=== PATIENT | female | born 2000 | race Two or more races ===

== ENCOUNTER 2024-02-17 09:16 | Emergency (ER) | payer OTHER ==
[~2024-02-17] VITALS: Ht 165.1 cm; Wt 71.7 kg
== END 2024-02-17 11:36 | disposition home or self-care (01) ==
LOC: ER 09:19
DX: J32.9 Chronic sinusitis, unspecified (principal); Z88.2 Allergy status to sulfonamides; Z88.8 Allergy status to other drugs, medicaments and biological substances